=== PATIENT | male | born 1955 ===

== ENCOUNTER 2017-10-25 07:39 | Observation (INO) | payer OTHER ==
[~2017-10-25 07:39] MED LIST: Bacitracin IV* 50,000 UNITS INJ ONE; Buffered Lidocaine 0.9% SYRIN* 5 ML/SYR SYRINGE INTRADERM ONE; Famotidine IV* 10 MG/ML 2 ML (20 mg) IV ONE; Lidocaine 1% MPF wEPI 200,000* 30 ML SDV ONE; Thrombin 5,000 UNITS* 1 APPLIC KIT - topical use - TOPICAL ONE
[2017-10-25] MEDS ORDERED: Famotidine IV* 10 MG/ML 2 ML (20 mg) ONE (07:58)
[2017-10-25] MEDS ORDERED: Buffered Lidocaine 0.9% SYRIN* 5 ML/SYR SYRINGE ONE (07:59)
[2017-10-25] MEDS ORDERED: HYDROcodone/ACETAMIN 5-325 MG* 1 TAB PO PRN (09:30)
[2017-10-25] MEDS ORDERED: oxyCODONE/Acetamin 5/325 MG* TAB PO PRN (09:30)
[2017-10-25] MEDS ORDERED: DiMENhydriNATE IV* 50 MG/ML VIAL IV PUSH PRN (09:30)
[2017-10-25] MEDS ORDERED: PROCHLORPERAZINE INJ 5 MG/ML 2 ML VIAL IV PRN (09:30)
[2017-10-25] MEDS ORDERED: Naloxone* 0.4 MG/ML 1 ML VIAL IV PRN (09:30)
[2017-10-25] MEDS ORDERED: Mivacurium Chloride* 20 MG/10 ML VIAL IV ONE (09:32)
[2017-10-25] MEDS ORDERED: Lidocaine 2% PF * 5 ML VIAL ONE (09:34)
[2017-10-25] MEDS ORDERED: fentaNYL* 50 MCG/ML 5 ML VIAL (250 MCG VIAL) ONE (09:34)
[2017-10-25] MEDS ORDERED: Midazolam* 1 MG/ML 2 ML VIAL (2 MG) ONE (09:34)
[2017-10-25] MEDS ORDERED: Propofol* 10 MG/ML 20 ML BTL IV PUSH ONE (09:34)
[2017-10-25] MEDS ORDERED: EPHEDrine (Pressors)* 50 MG/ML VIAL ONE (10:21)
[2017-10-25] MEDS ORDERED: Ondansetron INJ* 2 MG/ML VIAL ONE (10:36)
[2017-10-25] MEDS ORDERED: Magnesium Hydroxide LIQ* 30 ML UDC PO PRN (11:28)
[2017-10-25] MEDS ORDERED: Zolpidem TAB* 10 MG PO PRN (11:28)
[2017-10-25] MEDS ORDERED: Ondansetron INJ* 2 MG/ML VIAL IV PRN (11:28)
--- NOTE | 2017-10-25 12:21 | RAD ---
Indication: Lumbar discectomy. 2 lateral views taken in the operating room demonstrates localization of L5-S1. IMPRESSION: Localization of the L5-S1 interspace.
[2017-10-25] MEDS ORDERED: fentaNYL* 50 MCG/ML 2 ML VIAL (100 MCG VIAL) ONE (12:28)
[2017-10-25] MEDS: fentaNYL* 50 MCG/ML 2 ML VIAL (100 MCG VIAL) IV PRN ×2 (12:29→12:51)
[2017-10-25] MEDS: HYDROcodone/ACETAMIN 5-325 MG* 1 TAB PO PRN ×3 (14:42→22:50)
[2017-10-25] MEDS ORDERED: amLODIPine TAB* 5 MG PO SCH (18:00)
[2017-10-25] MEDS ORDERED: Atorvastatin* 20 MG TAB PO SCH (18:00)
[2017-10-26] MEDS: HYDROcodone/ACETAMIN 5-325 MG* 1 TAB PO PRN (06:16)
[2017-10-26 09:39] VITALS: BP 126/75
--- NOTE | 2017-10-28 22:55 | DS ---
DISCHARGE SUMMARY: DATE OF ADMISSION: 10/25/17 DATE OF DISCHARGE: 10/26/17 ATTENDING PHYSICIAN: Dr. Thomas.* (DICTATED BY JEFFERSON HODGE) DISCHARGE DIAGNOSES: 1. Herniated nucleus pulposus, L4-5 on the right. 2. Hypertension. 3. Diabetes. SPECIAL PROCEDURES: Lumbar diskectomy, L4-5 on the left. HOSPITAL COURSE: This 62-year-old male who was seen in the office with left- sided lumbar radiculopathy, which was significantly impacting his ability to perform work and daily activities. MRI revealed herniated disk at L4-5 on the left consistent with the patient's symptoms and physical exam. Considering the patient's weakness and severe pain, treatment with surgery was discussed and he decided to proceed with this option. On the day of admission, he was taken to surgery where under general anesthesia, a lumbar diskectomy at L4-5 on the left operation was carried out. Postoperatively, he was feeling well and pain was well controlled with oral pain medications. He was ambulating independently. The left lower extremity symptoms have improved. He was eating, drinking, and voiding without difficulty. On the first postoperative day, he was discharged home to the care of his family. DISCHARGE INSTRUCTIONS: Wound care and activity level were discussed with the patient and information on these were provided. DISCHARGE MEDICATIONS: Elsie 5/325 mg 1 tab by mouth every 4 hours as needed for pain. FOLLOWUP: The patient will be seen in the office in approximately 10 days for followup and staple removal. JEFFERSON HODGE [id number]/[facility] #: [id number] ANU
--- NOTE | 2017-11-03 13:07 | OP ---
OPERATIVE REPORT: DATE OF OPERATION: 10/25/17 DATE OF : 53 SURGEON: Toro Thomas MD ANESTHESIA: General. PRE-OP DIAGNOSIS: Herniated nucleus pulposus, L4-5 on the left. POST-OP DIAGNOSIS: Herniated nucleus pulposus, L4-5 on the left. OPERATIVE PROCEDURE: Lumbar diskectomy L4-5 on the left with microdissection. DESCRIPTION OF PROCEDURE: After satisfactory general anesthesia was obtained, the patient was placed on operating table in prone position with the chest supported on the Nawaf frame and the back sligh tly flexed. The lumbar region was then clipped, prepped and draped in a sterile manner for lumbar la minectomy and a skin incision outlined from L4 to L5. This incision was infiltrated with 1% Xylocain e with epinephrine after which it was turned down sharply to the level of the lumbar fascia. The fas naomie was divided along the spinous processes of L4 and L5 and the paraspinal musculature stripped away from these posterior elements using the periosteal elevator and a monopolar cautery. An intraoperat leonel x-ray was obtained verifying proper interspace localization after which a decompression was jamin ed out by removing the inferior aspect of the L4 lamina and medial aspect of the facet complex. This was carried superiorly into the fascia and ligamentum flavum was taken down. The ligamentum flavum was then removed with the Kerrison Rongeur. At this point of the procedure, the operating microscope was brought into the field and the remainder of the procedure was done under microscopic visualizat ion. Utilizing microdissection, epidural venous structures were coagulated and divided. Projecting be neath the L5 nerve root somewhat inferior to the disk space were several fragments of extruded disk material. Multiple fragments of disk were removed and an opening was enlarged in the disk space itse lf with the disk space itself being cleared of any loose disk material. At the conclusion of decompr ession, the L5 nerve root was noted to be free in its course. The wound was then thoroughly irrigate d and after assuring adequate hemostasis, a piece of Gelfoam was placed over the laminectomy defect. The fascia was then reapproximated with 0 Vicryl sutures. The subcutaneous tissues were closed with 3-0 Vicryl suture and the skin closed with skin clips. The estimated blood loss was less than 50 cc and the final sponge, padding and needle counts were correct. The patient was taken to the recovery room, extubated and in stable condition. [id number]/[facility] #: [id number]
== END 2017-10-26 09:50 | disposition home or self-care (01) ==
LOC: OR 07:39 → SSU 13:18
PROVIDERS: ADMIT Neurological Surgery; ATTEND Neurological Surgery
DX: M51.26 Other intervertebral disc displacement, lumbar region (principal); I10 Essential (primary) hypertension; E11.9 Type 2 diabetes mellitus without complications
CPT/HCPCS: 72100; 94760; A9270-GY; G0378; J2001; J2250; J2405; J2704; J3010

== ENCOUNTER 2018-01-03 09:32 | Inpatient (IN) | payer OTHER ==
--- NOTE | 2017-12-21 16:16 | HP ---
HISTORY AND PHYSICAL: DATE OF ADMISSION/SURGERY: 01/03/18 SURGEON: Rosemary Polanco MD * (DICTATED BY JEFFERSON YOUNG) PROCEDURE: Left total hip arthroplasty. CHIEF COMPLAINT: Left hip pain. HISTORY OF PRESENT ILLNESS: Mr. Moreno is a 62-year-old gentleman with continued complaints of left hip pain. He has failed conservative management and elected to proceed with a left total hip arthroplasty, which is scheduled for 01/03/[address] Polanco. PAST MEDICAL HISTORY: 1. Hypertension. 2. Diabetes. PAST SURGICAL HISTORY: 1. Lumbar diskectomy. 2. Left knee arthroscopy. 3. Appendectomy. CURRENT MEDICATIONS: 1. Metformin 750 mg twice daily. 2. Pravastatin Sodium 80 mg daily. 3. Amlodipine/valsartan 5/320 mg daily. 4. Lisinopril 10 mg daily. 5. Advil as needed. ALLERGIES: None. FAMILY HISTORY: Diabetes and cancer. SOCIAL HISTORY: He is a 62-year-old gentleman, lives with his . He does not smoke. He is a former smoker, quit 9 years ago. He denies use of drugs. Uses occasional alcohol. REVIEW OF SYSTEMS: A complete 14-point review of systems was reviewed with the patient and it was all negative or noncontributory. PHYSICAL EXAMINATION GENERAL: Well developed, well nourished, in no acute distress. VITAL SIGNS: He stands 5 feet 11 inches tall, weighs 225 pounds. Blood pressure 116/80, heart rate 20. HEENT: Normocephalic, atraumatic. NECK: Supple. No palpable lymph nodes. PULMONARY: Lungs are clear to auscultation bilaterally. CARDIAC: Regular rate and rhythm. Strong S1 and S2. ABDOMEN: Soft, nontender, and nondistended. MUSCULOSKELETAL: Right lower extremity, the skin is intact. There is no open wounds or abrasions. He walks with an antalgic type gait favoring his left hip. He has decreased internal and external rotation of the left hip. He has 2 + dorsalis pedis pulses. Intact sensation. He does have weakness with his left EHL and ankle dorsiflexion. Ankle dorsiflexion approximately 4/5. He is unable to lift his great toe. Strength is approximately 1/5. He is able to plantarflex without difficulty. NEUROLOGIC: He is alert and oriented x3. Cranial nerves II through XII are intact. ASSESSMENT AND PLAN: Mr. Moreno is a 62-year-old gentleman with complaints of left hip pain. He has failed conservative management and elected to proceed with a left total hip arthroplasty. The surgery is scheduled for 01/03/[address] Polanco discussed the risks and benefits of the surgery on today' s visit and all of his questions were answered. He will follow up with Dr. Polanco 2 weeks after the surgery. JEFFERSON YOUNG [id number]/[facility] #: [id number] ANU
[~2018-01-03 09:32] MED LIST changes: +Acetaminophen IV 1GM/100ML * 1,000 MG/100 ML VIAL IVPB ONE; -Bacitracin IV* 50,000 UNITS INJ ONE; -Lidocaine 1% MPF wEPI 200,000* 30 ML SDV ONE; +Metoclopramide IV* 5 MG/ML 2 ML VIAL IV SLOW PU ONE; -Thrombin 5,000 UNITS* 1 APPLIC KIT - topical use - TOPICAL ONE
[2018-01-03] MEDS ORDERED: Famotidine TAB* 20 MG ONE (10:27)
[2018-01-03] MEDS ORDERED: Metoclopramide IV* 5 MG/ML 2 ML VIAL ONE (10:27)
[2018-01-03] MEDS ORDERED: ceFAZolin 2 GM PREMIX (*) 2 GM/50 ML BAG IVPB ONE (10:28)
[2018-01-03] MEDS ORDERED: Lidocaine 2% PF * 5 ML VIAL ONE (11:23)
[2018-01-03] MEDS ORDERED: Propofol* 500 MG/50 ML BTL ONE (11:23)
[2018-01-03] MEDS ORDERED: Midazolam* 1 MG/ML 2 ML VIAL (2 MG) ONE ×2 (11:29→13:14)
[2018-01-03] MEDS ORDERED: Morphine PF AMP (0.5MG/ML)* 5 MG/10 ML AMP ONE (11:29)
[2018-01-03] MEDS ORDERED: fentaNYL* 50 MCG/ML 2 ML VIAL (100 MCG VIAL) ONE (11:29)
[2018-01-03] MEDS ORDERED: Propofol* 10 MG/ML 20 ML BTL IV PUSH ONE (13:16)
[2018-01-03] MEDS ORDERED: Cyclobenzaprine TAB* 10 MG PO PRN (13:43)
[2018-01-03] MEDS ORDERED: Acetaminophen TAB* 325 MG PO PRN (13:43)
[2018-01-03] MEDS ORDERED: Bisacodyl SUPP* 10 MG SUPP PR PRN (13:43)
[2018-01-03] MEDS ORDERED: Magnesium Hydroxide LIQ* 30 ML UDC PO PRN (13:43)
[2018-01-03] MEDS ORDERED: Ondansetron INJ* 2 MG/ML VIAL ONE (14:16)
[2018-01-03] MEDS ORDERED: Ketorolac INJ* 30 MG/ML 1 ML VIAL ONE (14:16)
[2018-01-03] MEDS ORDERED: diPHENhydraMINE IV* 50 MG/ML 1 ml VIAL (BENADRYL) IV PRN ×2 (14:23→14:25)
[2018-01-03] MEDS ORDERED: HYDROmorphone INJ* 1 MG/ML CARPUJECT SYRINGE IV PRN (14:23)
[2018-01-03] MEDS ORDERED: fentaNYL* 50 MCG/ML 2 ML VIAL (100 MCG VIAL) IV PRN (14:23)
[2018-01-03] MEDS ORDERED: Naloxone* 0.4 MG/ML 1 ML VIAL IV PRN ×2 (14:23→14:25)
[2018-01-03] MEDS ORDERED: Ondansetron INJ* 2 MG/ML VIAL IV PRN ×2 (14:23→14:25)
[2018-01-03] MEDS ORDERED: Scopolamine 1.5 mg* PATCH TRANSDERM PRN (14:23)
[2018-01-03] MEDS ORDERED: oxyCODONE TAB* 5 MG TAB PO PRN ×2 (14:23)
[2018-01-03] MEDS ORDERED: PROCHLORPERAZINE INJ 5 MG/ML 2 ML VIAL IV PRN (14:25)
--- NOTE | 2018-01-03 15:54 | RAD ---
INDICATION: Left total hip arthroplasty COMPARISON: Preoperative radiograph dated December 07, 2017 TECHNIQUE: A single AP intraoperative view of the left hip was obtained FINDINGS: The hip prosthesis, minus the femoral head prosthesis, is anatomically aligned in the AP projection. The visualized bones are appropriately aligned. IMPRESSION: Anterior posterior anatomic alignment of femoral shaft and acetabular components of the left hip prostheses.
--- NOTE | 2018-01-03 15:56 | RAD ---
INDICATION: Status post left total hip arthroplasty COMPARISON: Preoperative radiograph December 07, 2017 TECHNIQUE: 3 views of the prosthetic left hip were obtained. FINDINGS: The recently installed left hip prosthesis is anatomically aligned in the AP and lateral projections. There is no evidence of periprostatic fracture. Postsurgical changes include subcutaneous gas. IMPRESSION: Anatomic alignment of recently installed left hip prosthesis.
[2018-01-03] MEDS ORDERED: Warfarin TAB(*) 6 MG PO ONE (17:00)
--- NOTE | 2018-01-03 20:45 | CONS ---
CC: Rosemary Polanco MD * CONSULTATION NOTE: DATE OF CONSULTATION: 01/03/18 REQUESTING PROVIDER: Rosemary Polanco MD MY ATTENDING WHILE IN THE HOSPITAL: Rock Haley MD REASON FOR CONSULTATION: Comanagement of comorbid medical conditions. HISTORY OF PRESENT ILLNESS: Mr. Moreno is a 62-year-old male with a past medical history significant for hypertension, diabetes, hyperlipidemia, who is status post left total knee arthroplasty. The patient had spinal anesthesia and an estimated blood loss of approximately 300 mL. The patient has about 4/ 10 sharp pain in his left hip. The patient cannot otherwise feel his legs. The patient has no other pain. The patient has no other complaints including chest pain, shortness of breath, nausea, vomiting, dizziness, palpitations. The patient has no recent illnesses, changes in his urine, diarrhea or constipation, exposure to people with the flu or other recent complaints. The patient checks his blood sugar frequently and it has usually been around 100 to 120. The patient has never had any other complications with any of his surgeries. The patient's blood pressure is slightly decreased with the lowest being 98/63 while in the postacute care unit. The patient states that he took his blood pressure medications including lisinopril and amlodipine last night. PAST MEDICAL HISTORY: Hypertension, diabetes, BPH, hyperlipidemia. PAST SURGICAL HISTORY: Lumbar diskectomy, left total knee arthroscopy, and appendectomy in the distant past. CURRENT MEDICATIONS: 1. Metformin 750 mg p.o. twice daily. 2. Pravastatin 80 mg p.o. daily. 3. Amlodipine 5 mg p.o. daily. 4. Lisinopril 10 mg p.o. daily. 5. Advil 200 mg p.o. as needed. ALLERGIES: None. FAMILY HISTORY: The patient's father, sister, and maternal grandmother all had diabetes. The patient's father has been a smoker and had lung cancer. SOCIAL HISTORY: The patient lives with his . The patient is a former smoker. He has a 15 pack year history of smoking. He quit 9 years ago. The patient has never used illicit drugs. The patient drinks approximately 1 alcoholic beverage a week. The patient's , Mehnaz, is his surrogate decision maker. 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 REVIEW OF SYSTEMS: A 14-point review of systems was reviewed and is negative except as above in the HPI. PHYSICAL EXAMINATION: General: The patient is a 62-year-old male, who appears stated age and sitting comfortably in the bed, in no acute distress. Vital Signs: Temperature 98.2, pulse rate 74, respiratory rate 16, oxygen saturation is 97% on 2 L of oxygen, blood pressure 98/63. HEENT: Head normocephalic, atraumatic. Sclerae anicteric. No conjunctival injection. Nasal mucosa moist. Oral mucosa moist. No pharyngeal erythema, discharge or exudate. Neck: Supple. Nontender. No lymphadenopathy. No carotid bruit auscultated. Respiratory: Clear to auscultation bilaterally. No wheezes, rales or rhonchi. Good air exchange bilaterally. Cardiac: Regular rate and rhythm. No clicks , murmurs, gallops, or rubs. Pulses 2+ in bilateral dorsalis pedis, posterior tibialis, and radial areas. No lower extremity edema or calf tenderness. Abdomen: Soft, nontender, and nondistended. Bowel sounds present. Normoactive in all 4 quadrants. No hepatosplenomegaly. No abdominal bruits auscultated. Genitourinary: No suprapubic or CVA tenderness. The patient has a Merino catheter inserted which is draining clear yellow urine. Neuro: Cranial nerves II through XII intact. No focal deficits except for expected inability to move or feel the bilateral lower extremities status post spinal anesthesia. Alert and oriented x3. Psychiatric: Pleasant and cooperative. LABORATORY DATA: From 12/21/17, white blood cell count 7.7, hemoglobin 14.5, hematocrit 43%, MCV 90, MCH 30, RDW 13, platelet count 241,000. INR 1.02, aPTT 29.2. Sodium 140, potassium 3.9, chloride 104, carbon dioxide 23, anion gap 13 , BUN 21, creatinine 0.82, glucose 121. Calcium 9.8, bilirubin 0.7, AST 19, ALT 22, alkaline phosphatase 67. Total protein 7.4. Albumin 4.4, globulin 3.0. TSH 0.96. Urinalysis shows trace ketones. No other abnormalities. ASSESSMENT AND PLAN/IMPRESSION: The patient is a 62-year-old male with past medical history significant for hypertension, diabetes, and hyperlipidemia, who is status post a left total knee arthroplasty. The patient has currently had no complications intraoperatively and is currently recovering well. 1. Status post left total knee arthroplasty. Management per primary team. Monitor hemoglobin and hematocrit. Bowel regimen and pain control per primary team. 2. Hypertension. The patient is currently borderline hypotensive. The patient took his blood pressure medications last night. We will hold the patient's lisinopril and continue amlodipine with hold parameters at this time, we will reintroduce lisinopril as tolerated. 3. Diabetes. We will continue the patient's metformin. We will start the patient on sliding scale insulin and fingersticks a.c. and h.s. for tight glucose control postoperatively. 4. Hyperlipidemia. Continue pravastatin. 5. FEN: The patient will have fluids. He will have lactated Ringer's at 100 mL an hour as per primary team. The patient will have a regular diet. 6. DVT prophylaxis. Lovenox to warfarin as per primary team. 7. Code status: The patient would like to be a full code. The patient's healthcare proxy is his Mehnaz. TIME SPENT: Approximately 60 minutes were spent on this consultation, 30 of which was spent [id number] with the patient, obtaining history and physical and discussing treatment plan. This plan has been discussed with my attending, Dr. Rock Haley, he is in agreement. Thank you very much for this consultation. JEFFERSON NELSON [id number]/[facility] #: [id number] MTDEldon
[2018-01-03] MEDS ORDERED: amLODIPine TAB* 5 MG PO SCH (21:00)
[2018-01-03] MEDS: Magnesium Hydroxide LIQ* 30 ML UDC PO SCH (21:04)
[2018-01-03] MEDS: oxyCODONE TAB* 5 MG TAB PO PRN (21:31)
[2018-01-03] MEDS: amLODIPine TAB* 5 MG PO SCH (21:31)
[2018-01-03] MEDS: metFORMIN* 500 MG TAB PO SCH (21:32)
[2018-01-03] MEDS: Docusate CAP* 100 MG PO SCH (21:32)
[2018-01-03] MEDS: Atorvastatin* 20 MG TAB PO SCH (21:32)
[2018-01-03] MEDS: ceFAZolin 1 GM in Dextrose (*) 1 GM/50 ML BAG IVPB SCH (21:38)
[2018-01-04] MEDS ORDERED: oxyCODONE TAB* 5 MG TAB ONE (03:56)
[2018-01-04] MEDS: oxyCODONE TAB* 5 MG TAB PO PRN ×2 (03:58→14:53)
[2018-01-04] MEDS ORDERED: oxyCODONE/Acetamin 5/325 MG* TAB PO PRN (04:00)
[2018-01-04] MEDS ORDERED: Morphine INJ* 2 MG/ML 1 ML CARPUJECT IV PRN (04:00)
[2018-01-04] MEDS ORDERED: diPHENhydraMINE IV* 50 MG/ML 1 ml VIAL (BENADRYL) IV PRN (04:00)
[2018-01-04] MEDS ORDERED: Ondansetron INJ* 2 MG/ML VIAL IV PRN (04:00)
[2018-01-04] MEDS: ceFAZolin 1 GM in Dextrose (*) 1 GM/50 ML BAG IVPB SCH ×2 (05:41→12:51)
[2018-01-04] MEDS: oxyCODONE/Acetamin 5/325 MG* TAB PO PRN ×3 (07:24→18:47)
[2018-01-04 08:07] LABS: Hematocrit 33 % (42-52); Hemoglobin 11.8 g/dl (14.0-18.0); Mean Platelet Volume 8.1 um3 (7.4-10.4); Platelet Count 159 10^3/ul (150-450)
[2018-01-04 08:10] LABS: INR 1.14 (0.77-1.02)
[2018-01-04 08:19] LABS: EGFR Non-African American 108.5 (>60)
--- NOTE | 2018-01-04 08:34 | OP ---
DATE OF OPERATION: 01/03/18 - ROOM #346 DATE OF : 53 SURGEON: Rosemary Polanco MD FUR JOINER: JEFFERSON Gilmore. Ms. Fuentes did help throughout the procedure with preparation of the leg, wound retraction, manipulation of the hip and wound closure. ANESTHESIOLOGIST: Dr. Cabrera. ANESTHESIA: Spinal. PRE-OP DIAGNOSIS: Severe end-stage degenerative osteoarthritis of the left hip joint. POST-OP DIAGNOSIS: Severe end-stage degenerative osteoarthritis of the left hip joint. OPERATIVE PROCEDURE: Left total hip arthroplasty. ESTIMATED BLOOD LOSS: 300 cc. COMPLICATIONS: None. SPECIMEN: Femoral head and acetabular reaming sent to Pathology. HARDWARE USED: This is uncemented [place] total hip arthroplasty hardware. For the cup, 54E Tritanium cluster hole shell with a single 20-mm screw. For the liner, a Trident X3 polyethylene insert 36E. For the stem, an Accolade TMZF size 4.5 with a 132-degree neck. For the head, a Biolox delta ceramic V40 femoral head 36+0. BRIEF HISTORY/INDICATIONS: Mr. Moreno is a 62-year-old gentleman with 6 months of severe left hip pain. Radiographs showed advanced arthritis. He failed conservative treatment with anti-inflammatories, home exercise program, pain medications, and intra-articular injection and elected to undergo left total hip arthroplasty. Informed consent was obtained from the patient. He understood the risks of the surgery included, but were not limited to bleeding, infection, damage to nearby structures, continued pain, need for further surgery, intraoperative fracture, nerve palsy, hardware failure or loosening, dislocation, leg length discrepancy , stroke, heart attack, blood clot, and . He wishes to proceed. INTRAOPERATIVE FINDINGS: Intraoperatively, the patient was noted to have severe end-stage arthritis with complete loss of cartilage in the acetabulum and the femoral head. DESCRIPTION OF PROCEDURE: Mr. Moreno was identified in the preanesthesia unit. His left lower extremity was marked as the correct operative side. Informed consent was signed and placed in the chart. The patient was taken to the operating room and placed under spinal anesthesia. A Merino catheter was placed. The patient was placed in the right lateral decubitus position on the pegboard and all bony prominences were well padded. The left lower extremity was prepped and draped in the usual sterile fashion. Preop time-out was made to correctly identify the patient's side and site. Appropriate perioperative antibiotics were given within 1 hour of incision. A standard posterior hip incision was made with a 10-blade and carried down to the lateral fascial layer. Lateral fascial layer was incised in line with the skin incision. Charnley retractor was placed. The piriformis and conjoint tendons were identified on the posterolateral femur and elevated with electrocautery. These were tagged with #5 Ethibond. Next, electrocautery was used to make a standard posterolateral capsular flap and this was also tagged with #5 Ethibond. The hip was carefully dislocated. Lesser troch to center of the femoral head measured 62 mm. Oscillating saw was used to make the appropriate femoral neck cut. Femoral head was removed. The femur was carefully retracted anteriorly. After appropriate placement of retractor, the acetabulum was visualized. Long-handled knife was used to sharply remove any remaining labrum from the acetabular rim. The acetabulum was sequentially reamed up to a size 53. A bleeding subchondral bone bed was established. A 53 trial had excellent fit and appropriate anteversion/ abduction angle. Final implant chosen was a Tritanium cluster hole shell 54E. This was impacted into the acetabulum without difficulty. Excellent stability was obtained. Appropriate anteversion and abduction angle were obtained. A single 20-mm screw was placed in the superoposterior quadrant for extra stability. Trident X3 0-degree polyethylene insert 36E was chosen and impacted into the acetabulum. Stability of the insert was checked and rechecked and noted to be stable. Next, attention was turned to preparation of the femur. A canal finder was used to enter the proximal femur. Femur was sequentially broached up to a size 4.5. A 4.5 broach had excellent fit. There was appropriate anteversion. A 132- degree neck trial was chosen as well as a 36+0 head trial. Lesser troch to center of the femoral head measured 64 mm. The hip was reduced and taken through a range of motion. The hip was stable in all positions. There was appropriate soft tissue tension and leg length. The hip was dislocated and all trials were removed. Final implant chosen was an Accolade TMZF size 4.5 with a 132-degree neck. A 36+0 Biolox delta ceramic V40 head was chosen. The femoral stem was impacted into the femoral canal without complications. Next, the femoral head was impacted on to the femoral neck without complications. The hip was reduced and taken through a range of motion. The hip was stable in all positions with good soft tissue tension and appropriate leg lengths. The hip was copiously irrigated with sterile saline. Previously tagged capsule and tendons were reapproximated to the posterolateral femur through 2 trochanteric drill holes. Lateral fascial layer was reapproximated using interrupted #1 Vicryls. The rest of the incision was closed in a layered fashion using 0 and 2-0 Vicryls. The skin was closed using running 3-0 Monocryl and Dermabond. Sterile Adaptic, 4x4s, and paper tape were used to cover the incision. The patient was taken to the PACU in stable condition. Intended weightbearing will be weightbearing as tolerated with posterior hip precautions. Intended DVT prophylaxis will be Coumadin with a Lovenox bridge. [id number]/[facility] #: [id number] ANU
[2018-01-04] MEDS: metFORMIN* 500 MG TAB PO SCH ×2 (08:35→21:33)
[2018-01-04] MEDS: Vitamin THERAPEUTIC TAB PO SCH (08:35)
[2018-01-04] MEDS: Docusate CAP* 100 MG PO SCH ×2 (08:35→21:32)
[2018-01-04] MEDS: Magnesium Hydroxide LIQ* 30 ML UDC PO SCH ×2 (08:35→21:34)
--- NOTE | 2018-01-04 09:09 | PN ---
Progress Note - Progress Note Date of Service: 01/04/18 SOAP: Subjective: []Patient seen at bedside. He feels well with well controlled left hip pain. Denies CP, SOB, dizziness, nausea or leg numbness. In Oct 2017 he developed left foot drop with continued weakness with dorsiflexion which is unchanged from baseline after surgery. Objective: [] Vital Signs Temp 100.0 F 01/04/18 07:13 Pulse 86 01/04/18 07:13 Resp 18 01/04/18 07:24 BP 107/60 01/04/18 07:13 Pulse Ox 98 01/04/18 07:13 Intake & Output 01/03/18 01/04/18 01/04/18 18:59 06:59 18:59 Intake Total 3170 1855 600 Output Total 300 675 Balance 2870 1180 600 Weight 219 lb Intake: IV Fluids 2450 1055 ABX - CEFAZOLIN 55 LR 2400 1000 NS 50ML, Cefazolin 2G 50 Oral 720 800 600 Output: Urine 125 Merino 300 550 Other: # Bowel Movements 0 Laboratory Last Values Hgb 11.8 g/dl (14.0-18.0) L 01/04/18 07:51 Hct 33 % (42-52) L 01/04/18 07:51 Plt Count 159 10^3/ul (150-450) 01/04/18 07:51 MPV 8.1 um3 (7.4-10.4) 01/04/18 07:51 INR (Anticoag Therapy) 1.14 (0.77-1.02) H 01/04/18 07:51 Sodium 133 mmol/L (139-145) L 01/04/18 07:51 Potassium 4.2 mmol/L (3.5-5.0) 01/04/18 07:51 Chloride 101 mmol/L (101-111) 01/04/18 07:51 Carbon Dioxide 26 mmol/L (22-32) 01/04/18 07:51 Anion Gap 6 mmol/L (2-11) 01/04/18 07:51 BUN 14 mg/dL (6-24) 01/04/18 07:51 Creatinine 0.73 mg/dL (0.67-1.17) 01/04/18 07:51 Est GFR ( Amer) 139.6 (>60) 01/04/18 07:51 Est GFR (Non-Af Amer) 108.5 (>60) 01/04/18 07:51 BUN/Creatinine Ratio 19.2 (8-20) 01/04/18 07:51 Glucose 155 mg/dL (70-100) H 01/04/18 07:51 POC Glucose (mg/dL) 134 mg/dL (70-100) H 01/04/18 07:26 Calcium 8.5 mg/dL (8.6-10.3) L 01/04/18 07:51 General: Well appearing, NAD LLE: Dressing CDI without surrounding erythema. Thigh soft. DF weak ( baseline) , PF intact. Sensation intact distally. DP/PT 2+. BL LE: Calves supple and nontender without erythema, edema or palpable cords. Assessment: []POD 1 sp left total hip arthroplasty, Dr Polanco Plan: []WBAT PT/OT, hip precautions lovenox, coumadin 6 mg
[2018-01-04] MEDS: Enoxaparin(*) 30 MG/0.3 ML SYR SUBCUT SCH (11:31)
[2018-01-04] MEDS ORDERED: Warfarin TAB(*) 6 MG PO ONE (17:00)
[2018-01-04] MEDS: Atorvastatin* 20 MG TAB PO SCH (21:32)
[2018-01-04] MEDS: amLODIPine TAB* 5 MG PO SCH (21:33)
--- NOTE | 2018-01-04 22:12 | PN ---
Subjective Date of Service: 01/04/18 Interval History: no complaints. pain is well controlled. Objective Active Medications: Acetaminophen (Tylenol Tab*) 650 mg PO Q4H PRN PRN Reason: PAIN OR TEMPERATURE Amlodipine Besylate (Norvasc Tab*) 5 mg PO BEDTIME [facility] Last Admin: 01/04/18 21:33 Dose: 5 mg Atorvastatin Calcium (Lipitor*) 20 mg PO BEDTIME [facility] Last Admin: 01/04/18 21:32 Dose: 20 mg Bisacodyl (Dulcolax Supp*) 10 mg [facility] DAILY PRN PRN Reason: constipation Cyclobenzaprine HCl (Flexeril Tab*) 10 mg PO TID PRN PRN Reason: SPASMS Diphenhydramine HCl (Benadryl Iv*) 25 mg IV Q6H PRN PRN Reason: itching Docusate Sodium (Colace Cap*) 100 mg PO BID [facility] Last Admin: 01/04/18 21:32 Dose: 100 mg Enoxaparin Sodium (Lovenox(*)) 30 mg SUBCUT Q24H [facility] Last Admin: 01/04/18 11:31 Dose: 30 mg Lactated Ringer's (Lactated Ringers 1000 Ml Bag*) 1,000 mls @ 100 mls/hr IV PER RATE [facility] Last Admin: 01/04/18 04:00 Dose: 100 mls/hr Magnesium Hydroxide (Milk Of Magnesia Liq*) 30 ml PO BID [facility] Last Admin: 01/04/18 21:34 Dose: 30 ml Magnesium Hydroxide (Milk Of Magnesia Liq*) 30 ml PO Q6H PRN PRN Reason: constipation Metformin HCl (Glucophage*) 750 mg PO BID [facility] Last Admin: 01/04/18 21:33 Dose: 750 mg Morphine Sulfate (Morphine Inj (Syringe)*) 2 mg IV Q2H PRN PRN Reason: PAIN - UNCONTROLLED Multivitamins (Theragran Tab*) 1 tab PO DAILY [facility] Last Admin: 01/04/18 08:35 Dose: 1 tab Ondansetron HCl (Zofran Inj*) 4 mg IV Q6H PRN PRN Reason: nausea Oxycodone HCl (Roxycodone Tab*) 10 mg PO Q4H PRN PRN Reason: PAIN - SEVERE Last Admin: 01/04/18 14:53 Dose: 10 mg Oxycodone/Acetaminophen (Percocet 5/325 Tab*) 2 tab PO Q4H PRN PRN Reason: PAIN - MODERATE TO SEVERE Last Admin: 01/04/18 18:47 Dose: 2 tab Oxycodone/Acetaminophen (Percocet 5/325 Tab*) 1 tab PO Q4H PRN PRN Reason: PAIN - MODERATE Pharmacy Profile Note (Scopolamine Patch Remove*) 1 note PATCH OFF Q72H ONE Stop: 01/06/18 14:25 Scopolamine (Transderm-Scop 1.5 Mg Patch*) 1 patch TRANSDERM Q72H PRN PRN Reason: Nausea/Vomiting Vital Signs - 8 hr 01/04/18 01/04/18 01/04/18 14:53 15:25 15:49 Temperature 99.3 F Pulse Rate 110 106 Respiratory 16 16 Rate Blood Pressure 119/70 (mmHg) O2 Sat by Pulse 97 Oximetry 01/04/18 01/04/18 01/04/18 16:00 17:08 18:47 Temperature Pulse Rate Respiratory 18 18 Rate Blood Pressure (mmHg) O2 Sat by Pulse 97 Oximetry 01/04/18 01/04/18 01/04/18 19:34 19:43 21:32 Temperature 100.8 F Pulse Rate 102 Respiratory 16 18 16 Rate Blood Pressure 120/68 (mmHg) O2 Sat by Pulse 95 Oximetry Oxygen Devices in Use Now: None Appearance: alert, sitting up in chair, well appearing Eyes: No Scleral Icterus, PERRLA Ears/Nose/Mouth/Throat: NL Teeth, Lips, Gums Neck: NL Appearance and Movements; NL JVP Respiratory: Symmetrical Chest Expansion and Respiratory Effort, Clear to Auscultation Cardiovascular: NL Sounds; No Murmurs; No JVD, RRR Abdominal: NL Sounds; No Tenderness; No Distention Lymphatic: No Cervical Adenopathy Extremities: No Edema, - - left hip dressed, no drainage Skin: No Rash or Ulcers Neurological: Alert and Oriented x 3 Result Diagrams: 01/04/18 07:51 01/04/18 07:51 Assess/Plan/Problems-Billing Assessment: - Patient Problems (1) Diabetes mellitus Current Visit: Yes Status: Acute Code(s): E11.9 - TYPE 2 DIABETES MELLITUS WITHOUT COMPLICATIONS SNOMED Code(s): 14647554 Comment: well controlled continue metformin and insulin sliding scale (2) HTN (hypertension) Current Visit: Yes Status: Acute Code(s): I10 - ESSENTIAL (PRIMARY) HYPERTENSION SNOMED Code(s): 96420243 Comment: normotensive off lisinopril will resume when needed over next few days
[2018-01-05] MEDS: oxyCODONE/Acetamin 5/325 MG* TAB PO PRN ×3 (00:11→09:46)
[2018-01-05 05:47] LABS: Hematocrit 33 % (42-52); Hemoglobin 11.4 g/dl (14.0-18.0); Mean Platelet Volume 8.2 um3 (7.4-10.4); Platelet Count 163 10^3/ul (150-450)
[2018-01-05 05:52] LABS: INR 1.22 (0.77-1.02)
[2018-01-05] MEDS: metFORMIN* 500 MG TAB PO SCH (08:21)
[2018-01-05] MEDS: Magnesium Hydroxide LIQ* 30 ML UDC PO SCH (08:21)
[2018-01-05] MEDS: Vitamin THERAPEUTIC TAB PO SCH (08:22)
[2018-01-05] MEDS: Docusate CAP* 100 MG PO SCH (08:22)
--- NOTE | 2018-01-05 12:03 | PN ---
Progress Note - Progress Note Date of Service: 01/05/18 SOAP: Subjective: []Patient seen at bedside. He feels well and desires discharge. Left hip pain is tolerable. Denies CP, SOB, dizziness, nausea, vomiting, fever. Objective: [] Vital Signs Temp 98.4 F 01/05/18 07:41 Pulse 77 01/05/18 07:41 Resp 20 01/05/18 09:46 BP 116/72 01/05/18 07:41 Pulse Ox 95 01/05/18 08:54 Intake & Output 01/04/18 01/05/18 01/05/18 18:59 06:59 18:59 Intake Total 1898 1040 590 Output Total 275 1900 150 Balance 1623 -860 440 Intake: IV Fluids 1098 ABX - CEFAZOLIN 110 LR 988 Oral 800 1040 590 Output: Urine 275 1900 150 Other: Estimated Void Small # Bowel Movements 0 # Voids 1 Laboratory Last Values Hgb 11.4 g/dl (14.0-18.0) L 01/05/18 05:23 Hct 33 % (42-52) L 01/05/18 05:23 Plt Count 163 10^3/ul (150-450) 01/05/18 05:23 MPV 8.2 um3 (7.4-10.4) 01/05/18 05:23 INR (Anticoag Therapy) 1.22 (0.77-1.02) H 01/05/18 05:23 Sodium 133 mmol/L (139-145) L 01/04/18 07:51 Potassium 4.2 mmol/L (3.5-5.0) 01/04/18 07:51 Chloride 101 mmol/L (101-111) 01/04/18 07:51 Carbon Dioxide 26 mmol/L (22-32) 01/04/18 07:51 Anion Gap 6 mmol/L (2-11) 01/04/18 07:51 BUN 14 mg/dL (6-24) 01/04/18 07:51 Creatinine 0.73 mg/dL (0.67-1.17) 01/04/18 07:51 Est GFR ( Amer) 139.6 (>60) 01/04/18 07:51 Est GFR (Non-Af Amer) 108.5 (>60) 01/04/18 07:51 BUN/Creatinine Ratio 19.2 (8-20) 01/04/18 07:51 Glucose 155 mg/dL (70-100) H 01/04/18 07:51 POC Glucose (mg/dL) 150 mg/dL (70-100) H 01/05/18 07:47 Hemoglobin A1c 6.9 % (4.0-5.6) H 01/03/18 22:26 Calcium 8.5 mg/dL (8.6-10.3) L 01/04/18 07:51 General: Well appearing, NAD LLE: Dressing changed, incision CDI without surrounding erythema and no discharge. Thigh soft. DF weak (baseline), PF intact. Sensation intact distally. DP/PT 2+. BL LE: Calves supple and nontender without erythema, edema or palpable cords. Assessment: []POD 2 sp left total hip arthroplasty, Dr Polanco Plan: []WBAT PT/OT, hip precautions lovenox, coumadin 6 mg DC home today
[2018-01-05] MEDS: oxyCODONE TAB* 5 MG TAB PO PRN (12:21)
[2018-01-05] MEDS: Enoxaparin(*) 30 MG/0.3 ML SYR SUBCUT SCH (12:22)
[2018-01-05 12:52] VITALS: BP 120/68
--- NOTE | 2018-01-05 22:17 | DS ---
DISCHARGE SUMMARY: DATE OF ADMISSION AND DATE OF SURGERY: 01/03/18 DATE OF DISCHARGE: 01/05/18 PROVIDER: Dr. Rosemary Polanco.* (DICTATED BY JEFFERSON GASTON) GASSER MACHINE OPERATOR: JEFFERSON Gilmore PREOPERATIVE DIAGNOSIS: Severe end-stage degenerative osteoarthritis of the left hip joint. OPERATIVE PROCEDURE: Left total hip arthroplasty. HISTORY: Mr. Moreno is a 62-year-old gentleman with 6 months of severe left hip pain. Radiographs showed advanced arthritis. He failed conservative treatment and has elected to undergo a left total hip arthroplasty. HOSPITAL COURSE: Mr. Moreno was admitted to [facility] on 01/03/18. He underwent a left total hip arthroplasty without complication. On postop day 1, he is well appearing, in no acute distress. Dressing clean, dry, intact. No surrounding erythema. Thigh soft. He had weak dorsiflexion, which is baseline for this patient. Plantarflexion was intact. Sensation intact distally. Dorsalis pedis, posterior tibial pulses 2+. Calf supple, nontender without erythema, edema or palpable cords. Postop day #2, vitals temperature 98.4, pulse 77, respiratory rate 20, blood pressure 116/72, pulse ox 95. Hemoglobin 11.5, hematocrit 33, INR 1.22. The patient is well appearing, in no acute distress. Dressing was changed. Incision clean, dry and intact without surrounding erythema and no discharge. Thigh is soft. Dorsiflexion, again weak , which is baseline for this patient. DP and PT pulses 2+. The patient is weightbearing as tolerated. DISCHARGE MEDICATIONS: 1. Amlodipine 5 mg p.o. at bedtime. 2. Pravastatin 80 mg p.o. at bedtime. 3. Metformin 2 tabs p.o. at bedtime. 4. Lisinopril 10 mg p.o. at bedtime. 5. Acetaminophen 650 p.o. q.4 hours p.r.n. 6. Docusate 100 mg p.o. b.i.d. 7. Percocet 5/325 one to two tabs every 4 to 6 hours p.r.n., max daily dose of 10. DISCHARGE PLAN: Weightbearing as tolerated. Continue hip precautions. Okay to shower after postop day #3. Visiting home nurse to do wound checks. Visiting home nurse to do blood work for INRs, Mondays and . Coumadin dosing, 01/05/18, 6 mg; 01/06/18 through 01/08/18, 2 mg; 01/09/18, recheck INR. Follow up with Dr. Polanco within 10 to 14 days. Medications will be picked up by Lucinda, pain control, Percocet 5/325 one to two tabs by mouth every 4 to 6 hours as needed for pain, max daily dose of 10 tabs per day. JEFFERSON AGSTON [id number]/[facility] #: [id number] ANU
[2018-01-06] MEDS ORDERED: Scopolamine PATCH Remove* 1 NOTE MISC PATCH OFF ONE (14:24)
== END 2018-01-05 12:45 | disposition home health service (06) | DRG 301 ==
LOC: AA 09:32 → SSU 17:25
PROVIDERS: ADMIT Orthopaedic Surgery Adult Reconstructive Orthopaedic Surgery; ATTEND Orthopaedic Surgery Adult Reconstructive Orthopaedic Surgery
PROC: 0SRB04A Replacement of Left Hip Joint with Ceramic on Polyethylene Synthetic Substitute, Uncemented, Open Approach (ICD-10-PCS; principal; 2018-01-03 13:00)
DX: M16.12 Unilateral primary osteoarthritis, left hip (principal); I10 Essential (primary) hypertension; E11.9 Type 2 diabetes mellitus without complications; N40.0 Benign prostatic hyperplasia without lower urinary tract symptoms; E78.5 Hyperlipidemia, unspecified; Z79.84 Long term (current) use of oral hypoglycemic drugs; Z79.1 Long term (current) use of non-steroidal anti-inflammatories (NSAID); Z79.899 Other long term (current) drug therapy; Z83.3 Family history of diabetes mellitus; Z87.891 Personal history of nicotine dependence; Z80.1 Family history of malignant neoplasm of trachea, bronchus and lung
CPT/HCPCS: 36415; 80048; 83036; 85014; 85018; 85049; 85610; A9270-GY; J0690; J1200; J1650; J1885; J2250; J2405; J2704; J2765; J3010

== ENCOUNTER 2018-05-29 11:35 | Emergency (ER) | payer OTHER ==
[2018-05-29] MEDS ORDERED: Morphine VIAL* 10 MG/ML 1 ML VIAL ONE (11:52)
[2018-05-29] MEDS ORDERED: Morphine INJ** 4 MG/ML 1 ML CARPUJECT IV ONE ×2 (11:53→13:01)
[2018-05-29] MEDS ORDERED: Morphine VIAL* 10 MG/ML 1 ML VIAL IV ONE (11:53)
[2018-05-29 12:13] LABS: ABS Basophils 0 10^3/ul (0-0.2); ABS Eosinophils 0.1 10^3/ul (0-0.6); ABS Lymphocytes 1.6 10^3/ul (1.0-4.8); ABS Monocytes 0.9 10^3/ul (0-0.8); ABS Neutrophils 15.5 10^3/ul (1.5-7.7); ABS Nucleated RBC 0 10^3/ul; Eosinophil % 0.7 % (0-6); Hematocrit 45 % (42-52); Hemoglobin 14.9 g/dl (14.0-18.0); Lymphocyte % 8.6 % (25-47); Mean Corpuscular HGB Conc 33 g/dl (31-36); Mean Corpuscular Hemoglobin 30 pg (27-31); Mean Corpuscular Volume 90 fL (80-94); Mean Platelet Volume 7.6 um3 (7.4-10.4); Nucleated Red Blood Cells % 0; Platelet Count 234 10^3/ul (150-450); Red Blood Count 4.99 10^6/ul (4.00-5.40); Red Cell Distribution Width 14 % (10.5-15); White Blood Count 18.1 10^3/ul (3.5-10.8)
[2018-05-29] MEDS ORDERED: Iodixanol* (CONTRAST) 320 MG/ML 100 ML SDV IV ONE (12:22)
[2018-05-29 12:30] LABS: EGFR Non-African American 84.1 (>60)
--- NOTE | 2018-05-29 12:31 | RAD ---
Indication: Right wrist injury after fall 3 views of the wrist demonstrates no fracture. No other bone or joint abnormality is identified. IMPRESSION: NO FRACTURE OF THE WRIST IS NOTED.
--- NOTE | 2018-05-29 12:48 | RAD ---
Indication: Head injury after fall. CT of the brain was performed without IV contrast. Ventricular structures are midline. No midline shift is noted. The extra-axial spaces are unremarkable. There is no evidence of intracranial mass or hemorrhage. No other high or low density lesions are identified. Mastoid air cells and paranasal sinuses are otherwise unremarkable. IMPRESSION: There is no evidence of intracranial mass or hemorrhage noted.
[2018-05-29] MEDS ORDERED: NS 0.9% 1000 ML* 1,000 ML IV ONE (12:59)
[2018-05-29] MEDS ORDERED: HYDROmorphone INJ* 2 MG/ML CARPUJECT SYRINGE IV SLOW PU ONE ×2 (12:59→15:13)
--- NOTE | 2018-05-29 13:25 | RAD ---
Indication: Neck injury after fall. CT of the cervical spine was obtained in the axial plane. Sagittal and coronal reconstructed images were obtained. Skull base demonstrates no fracture. Mastoid air cells are well aerated. The C1 ring is intact. The vertebral bodies appear normal in height. Degenerative changes of the atlantoaxial joint is noted. At C2-C3 and C3-C4 there is no fracture. No central or foraminal stenosis is noted. At C4-C5 spondylitic ridge flattens the thecal sac. No central or foraminal stenosis is noted. At C5-C6 there is degenerative disc disease present. Bilateral uncovertebral joint hypertrophy is noted. At C6-C7 and C7-T1 degenerative disc disease is noted. No central or foraminal stenosis is noted. IMPRESSION: No fracture of the cervical spine is noted. Degenerative disc disease at C4-C5, C5-C6 and C6-C7.
--- NOTE | 2018-05-29 13:29 | RAD ---
Indication: Fall off the ladder. Back injury CT of the thoracic spine is reviewed. Sagittal and coronal reconstructed images were obtained. There is disc space narrowing at multiple levels noted. Spinal canal is intact. There is fracture of the right transverse process of L2. There is also suggestion of a fracture of the right transverse process of L1. Additionally there is fracture of the right transverse process of L3 and L4. There is fracture of the right vertebral body of T12. Minimal displacement is noted. No significant compression is noted. No pneumothorax is noted. IMPRESSION: Fractures of the right transverse process of L1, L2 and L3. Additionally there are mildly comminuted fracture of the right vertebral bodies of T12 and possibly T11. Multilevel degenerative disc disease is noted.
--- NOTE | 2018-05-29 13:32 | RAD ---
Indication: Back injury after fall CT of the lumbar spine was obtained in the axial plane. Sagittal and coronal reconstructed images were obtained. Again noted is a minimally displaced fracture of the T12 vertebra without significant compression. No rib fractures are identified. Nondisplaced fracture of the right L1 transverse process is likely present. Additionally there are fractures of the right L2, L3, L4 transverse process. The vertebral bodies appear normal in height. Additionally there appears to be compression of the superior endplate of L4 with fracture of the anterior column. Degenerative disc disease is noted at multiple levels. IMPRESSION: Mild compression fracture of the L4 vertebra with fracture of the anterior column. Transverse process fractures of L1, L2, L3 and L4 are noted on the right.
--- NOTE | 2018-05-29 13:38 | RAD ---
Indication: Fall off ladder. Contrast: Administered 100.0 ml of VISAPAQUE 320 mg/ml CT of the chest,, abdomen and pelvis was performed after IV contrast administration. No oral contrast was administered. Inferior thyroid lobes are unremarkable. No mediastinal or hilar adenopathy is noted. The heart demonstrates no pericardial effusion. The trachea and major bronchi appear patent. The lung russo demonstrate no evidence of pleural fluid. Dependent changes are noted in the lung bases. No pleural fluid is identified. Of the abdomen and pelvis demonstrates liver to be normal in size. No focal lesions or intrahepatic duct dilatation is noted. The spleen is normal in size. The pancreas demonstrates no mass or pancreatic duct dilatation. The common duct is not dilated. The gallbladder demonstrates no calcified gallstones, pericholecystic fluid or wall thickening. No adrenal lesions are noted. Wedge-shaped area of nonperfusion is noted in the upper pole of the left kidney. No evidence of perinephric fluid or hemorrhage is noted. This may represent a small focal infarct in the upper pole of the left kidney or a small intraparenchymal hematoma. Atherosclerotic aorta is noted. No retroperitoneal lymphadenopathy is noted. CT of the pelvis demonstrates urinary bladder to be unremarkable. No significant free fluid is noted. No dilated loops of bowel are noted. The bony structures are as described on a prior CT report including fractures of T12, right transverse process fractures of L1, L2, L3 and L4. The pelvic ring is grossly intact. Patient is status post left hip replacement. Mild compression of the L4 superior endplate with comminuted fracture of the vertebral body is noted. IMPRESSION: There is wedge-shaped defect in the upper medial pole of the left kidney suspicious for a far more focal renal trauma. Fractures of the right transverse process of L1-L4, compression of the superior endplate of L4 and anterior column as well as fractures of the T12 and possibly T11 vertebra as are noted.
--- NOTE | 2018-05-29 14:43 | RAD ---
Indication: Right shoulder pain after fall 3 views of the right shoulder demonstrates AC joint arthritis. Superiorly subluxed humeral head is noted. No fracture is noted. IMPRESSION: AC joint arthritis. Superiorly subluxed humeral head.
--- NOTE | 2018-05-29 15:15 | ED ---
Adult Trauma - HPI Summary HPI Summary: Patient is a 62-year-old male presenting to the ED after falling off a 10 foot ladder landing directly on his thoracic spine. He endorses pain only to the right rib area. Denies any left-sided pain. Denies any weakness, numbness, tingling in the bilateral upper or lower extremities. No ecchymosis throughout. Denies hitting his head or LOC. He was unable to ambulate s/p fall. He denies any anticoagulation medications. History of previous low back surgery as well as left hip replacement. Patient family is at bedside and states he is acting normal and per baseline. Denies any neuro symptoms. Denies any headache, visual changes, back pain. He is endorsing severe right shoulder pain with limited range of motion. - History of Current Complaint Chief Complaint: EDTraumaMultiple Stated Complaint: FALL Time Seen by Provider: 05/29/18 11:42 Hx Obtained From: Patient Mechanism of Injury: Blunt Trauma Ambulatory at the Scene: No Loss of Consciousness: no loss of consciousness Force: High Onset/Duration: Started Hours Ago Onset of Pain: Immediate Onset Severity: Severe Current Severity: Severe Pain Intensity: 9 Pain Scale Used: 0-10 Numeric Location: Head, Neck, Chest, Back Character: Aching Aggravating Factor(s): Movement Alleviating Factor(s): Rest Associated Signs & Symptoms: Positive: Negative. Negative: SOB, Chest Pain, Hematuria, Nausea/Vomiting, Loss of Consciousness, Memory Loss, Numbness/ Weakness, Dysphagia, Hemoptysis, Significant Blood Loss - Additional Pertinent History Primary Care Physician: AGA - Allergy/Home Medications Allergies/Adverse Reactions: Allergies Allergy/AdvReac Type Severity Reaction Status Date / Time EKG LEADS Allergy SKIN Uncoded 05/29/18 11:53 IRRITATION PMH/Surg Hx/FS Hx/Imm Hx Previously Healthy: Yes Endocrine/Hematology History: Reports: Hx Diabetes Cardiovascular History: Reports: Hx Hypertension Respiratory History: Denies: Other Respiratory Problems/Disorders GI History: Denies: Other GI Disorders History: Denies: Hx Renal Disease Musculoskeletal History: Reports: Hx Arthritis - LEFT HIP Denies: Other Musculoskeletal History Sensory History: Denies: Hx Contacts or Glasses, Hx Hearing Aid Opthamlomology History: Denies: Hx Contacts or Glasses Neurological History: Denies: Other Neuro Impairments/Disorders - Surgical History Surgery Procedure, Year, and Place: appendectomy as a child. age 16, left knee. Lt [facility] Hx Anesthesia Reactions: No - Immunization History Hx Pertussis Vaccination: No Immunizations Up to Date: Yes Infectious Disease History: No Infectious Disease History: Denies: Traveled Outside the [place] in Last 30 Days - Social History Occupation: Employed Full-time Lives: With Family Alcohol Use: Occasionally Alcohol Amount: 2-3 Hx Substance Use: No Substance Use Type: Reports: None Hx Tobacco Use: No Smoking Status (MU): Former Smoker Amount Used/How Often: pack a day for 20 years Have You Smoked in the Last Year: No Review of Systems Constitutional: Negative Negative: Fever, Chills, Fatigue, Skin Diaphoresis Negative: Palpitations, Chest Pain Negative: Shortness Of Breath, Cough Negative: Abdominal Pain, Vomiting, Diarrhea, Nausea Genitourinary: Negative Negative: no symptoms reported, see HPI Positive: Arthralgia - right sided rib pain, Myalgia Negative: Rash, Bruising Negative: Headache, Weakness, Paresthesia, Numbness, Syncope Psychological: Normal All Other Systems Reviewed And Are Negative: Yes Physical Exam Triage Information Reviewed: Yes Vital Signs On Initial Exam: Initial Vitals Temp Pulse Resp BP Pulse Ox 97.2 F 71 13 103/71 96 05/29/18 11:40 05/29/18 11:40 05/29/18 11:40 05/29/18 11:40 05/29/18 11:40 Vital Signs Reviewed: Yes Appearance: Positive: Pain Distress, Signs of Trauma Skin: Positive: Skin Color Reflects Adequate Perfusion Head/Face: Positive: Normal Head/Face Inspection Eyes: Positive: EOMI, MIGUEL, Conjunctiva Clear Neck: Positive: Supple, Nontender, No Lymphadenopathy Respiratory/Lung Sounds: Positive: Clear to Auscultation, Breath Sounds Present Cardiovascular: Positive: Normal, RRR, Pulses are Symmetrical in both Upper and Lower Extremities Musculoskeletal: Positive: Pain @ - right ribs Neurological: Positive: Sensory/Motor Intact, Alert, Oriented to Person Place, Time, Speech Normal, Other - unable to assess gait Psychiatric: Positive: Affect/Mood Appropriate AVPU Assessment: Alert Diagnostics - Vital Signs Vital Signs Temp Pulse Resp BP Pulse Ox 05/29/18 13:41 84 15 112/67 98 05/29/18 13:14 20 05/29/18 13:11 72 17 100/58 98 05/29/18 13:08 20 05/29/18 13:00 78 18 100 05/29/18 12:41 75 15 102/64 98 05/29/18 12:39 75 12 94 05/29/18 11:57 18 05/29/18 11:54 18 05/29/18 11:40 97.2 F 71 13 103/71 96 - Laboratory Lab Results: Lab Results 05/29/18 05/29/18 05/29/18 Range/Units 12:00 12:00 12:00 WBC 18.1 H (3.5-10.8) 10^3/ul RBC 4.99 (4.00-5.40) 10^6/ul Hgb 14.9 (14.0-18.0) g/dl Hct 45 (42-52) % MCV 90 (80-94) fL MCH 30 (27-31) pg MCHC 33 (31-36) g/dl RDW 14 (10.5-15) % Plt Count 234 (150-450) 10^3/ul MPV 7.6 (7.4-10.4) um3 Neut % (Auto) 85.6 H (38-83) % Lymph % (Auto) 8.6 L (25-47) % Gray % (Auto) 4.8 (0-7) % Eos % (Auto) 0.7 (0-6) % Baso % (Auto) 0.3 (0-2) % Absolute Neuts (auto) 15.5 H (1.5-7.7) 10^3/ul Absolute Lymphs (auto) 1.6 (1.0-4.8) 10^3/ul Absolute Monos (auto) 0.9 H (0-0.8) 10^3/ul Absolute Eos (auto) 0.1 (0-0.6) 10^3/ul Absolute Basos (auto) 0 (0-0.2) 10^3/ul Absolute Nucleated RBC 0 10^3/ul Nucleated RBC % 0 Sodium 138 (135-145) mmol/L Potassium 3.9 (3.5-5.0) mmol/L Chloride 105 (101-111) mmol/L Carbon Dioxide 25 (22-32) mmol/L Anion Gap 8 (2-11) mmol/L BUN 21 (6-24) mg/dL Creatinine 0.91 (0.67-1.17) mg/dL Est GFR ( Amer) 101.8 (>60) Est GFR (Non-Af Amer) 84.1 (>60) BUN/Creatinine Ratio 23.1 H (8-20) Glucose 166 H (70-100) mg/dL Lactic Acid 2.1 H* (0.5-2.0) mmol/L Calcium 9.2 (8.6-10.3) mg/dL Total Bilirubin 0.50 (0.2-1.0) mg/dL AST 73 H (13-39) U/L ALT 62 H (7-52) U/L Alkaline Phosphatase 73 (34-104) U/L Total Protein 6.9 (6.4-8.9) g/dL Albumin 4.1 (3.2-5.2) g/dL Globulin 2.8 (2-4) g/dL Albumin/Globulin Ratio 1.5 (1-3) Result Diagrams: 05/29/18 12:00 05/29/18 12:00 Lab Statement: Any lab studies that have been ordered have been reviewed, and results considered in the medical decision making process. - Radiology No standard instances Xray Interpretation: No Acute Changes Radiology Interpretation Completed By: Radiologist - IMPRESSION: NO FRACTURE OF THE WRIST IS NOTED. 2 Xray Interpretation: Positive (See Comments) Radiology Interpretation Completed By: Radiologist - IMPRESSION: AC joint arthritis. Superiorly subluxed humeral head. - CT No standard instances CT Interpretation: Positive (See Comments) CT Interpretation Completed By: Radiologist - IMPRESSION: There is wedge-shaped defect in the upper medial pole of the left kidney suspicious for a far more focal renal trauma. Fractures of the right transverse process of L1-L4, compression of the superior endplate of L4 and anterior column as well as fractures of the T12 and possibly T11 vertebra as are noted. 1 CT Interpretation: No Acute Changes CT Interpretation Completed By: Radiologist - IMPRESSION: There is no evidence of intracranial mass or hemorrhage noted. 2 CT Interpretation: Positive (See Comments) CT Interpretation Completed By: Radiologist - IMPRESSION: Fractures of the right transverse process of L1, L2 and L3. Additionally there are mildly comminuted fracture of the right vertebral bodies of T12 and possibly T11. Multilevel degenerative disc disease is noted. Re-Evaluation - Re-Evaluation First Eval Change: Unchanged - Patient continues to be unable to ambulate despite pain management Adult Trauma Course/Dx - Course Course Of Treatment: During the course of treatment, the patient's evaluated for adult trauma. Pain is currently rated a 9/10, constant and throbbing. Pain is most notably over the right rib cage, denies any back pain. CT chest, abdomen and pelvis as well as CT brain, cervical, thoracic, lumbar spine obtained. Labs obtained which show an elevated white count and a lactic of 2.1. He is given 2 L fluids. He is also given a total of 8 mg morphine as well as 2 mg Dilaudid over his course. Moderate effect. Patient continues to be unable to ambulate and is continuing to endorse pain with any movement. Called [facility] at 3:15 PM who accepts patient for admission to ED to ED admission. Dr Kristopher Castrejon MD - [facility] accepts ED to ED. - Diagnoses Differential Diagnosis/HQI/PQRI: Positive: Abrasion(s), Fracture, Sprain, Strain Provider Diagnoses: Acute traumatic spinal injury - Physician Notifications Discussed Care Of Patient With: Toro Thomas Instructed by Provider To: Transfer - instructed by Dr. Alfaro (hospitalist) this patient is appropriate for transfer - Critical Care Time Critical Care Time: 30-74 min Discharge - Sign-Out/Discharge Documenting (check all that apply): Patient Departure - Discharge Plan Condition: Fair Disposition: TRANS HIGHER LVL OF CARE FAC Referrals: Chino Soto MD [Primary Care Provider] - - Billing Disposition and Condition Condition: FAIR Disposition: Trans Higher Lvl of Care Fac
--- NOTE | 2018-05-29 15:36 | ED ---
Progress - Progress Note Progress Note: This is a 62-year-old male who fell approximately 15 feet off the top of the ladder, landing on his back. He complains of back pain, he has multiple fractures or transverse processes, also anterior column and vertebral body fractures. No focal deficits. Also significant and shoulder pain, no tenderness on palpation. I believe the patient's intermittent hypotension IS RELATED directly to IV pain medication. He should receive a small fluid bolus, and also INTERFACILITY TRANSFER ARRANGED BY YADIEL PAULINO. Re-Evaluation - Re-Evaluation First Eval Change: Unchanged - Patient continues to be unable to ambulate despite pain management Course/Dx - Course Course Of Treatment: During the course of treatment, the patient's evaluated for adult trauma. Pain is currently rated a 9/10, constant and throbbing. Pain is most notably over the right rib cage, denies any back pain. CT chest, abdomen and pelvis as well as CT brain, cervical, thoracic, lumbar spine obtained. Labs obtained which show an elevated white count and a lactic of 2.1. He is given 2 L fluids. He is also given a total of 8 mg morphine as well as 2 mg Dilaudid over his course. Moderate effect. Patient continues to be unable to ambulate and is continuing to endorse pain with any movement. Called [facility] at 3:15 PM who accepts patient for admission to ED to ED admission. Dr Kristopher Castrejon MD - [facility] accepts ED to ED. CRITICAL CARE TIME (Micaela HAY MD): 45 MINUTES - Diagnoses Provider Diagnoses: Acute traumatic spinal injury, Spinal fracture - Provider Notifications Instructed by Provider To: Transfer - instructed by Dr. Alfaro (hospitalist) this patient is appropriate for transfer - Critical Care Time Critical Care Time: 30-74 min Discharge - Sign-Out/Discharge Documenting (check all that apply): Patient Departure - Discharge Plan Condition: Fair Disposition: TRANS HIGHER LVL OF CARE FAC Referrals: Chino Soto MD [Primary Care Provider] - - Billing Disposition and Condition Condition: FAIR Disposition: Trans Higher Lvl of Care Fac
[2018-05-29 16:58] VITALS: BP 96/65
== END 2018-05-29 16:55 | disposition short-term general hospital (02) ==
LOC: ED 11:35
DX: S32.019A Unspecified fracture of first lumbar vertebra, initial encounter for closed fracture (principal); S32.029A Unspecified fracture of second lumbar vertebra, initial encounter for closed fracture; S32.039A Unspecified fracture of third lumbar vertebra, initial encounter for closed fracture; S22.089A Unspecified fracture of T11-T12 vertebra, initial encounter for closed fracture; W11.XXXA Fall on and from ladder, initial encounter; Y92.9 Unspecified place or not applicable; Z87.891 Personal history of nicotine dependence
CPT/HCPCS: 36415; 70450; 71260; 72125; 72128; 72131; 74177; 80053; 83605; 85025; 96374; 96375; 99284; J1170; J2270; Q9967